=== PATIENT | female | born 1980 | race Caucasian/White ===

== ENCOUNTER 2016-10-08 16:22 | Emergency (ER) | payer BC ==
[~2016-10-08] VITALS: Ht 157.5 cm; Wt 61.5 kg
[2016-10-08 16:25] VITALS: TEMP 36.7; Ht 157.5 cm; Wt 61.5 kg
[2016-10-08] MEDS ORDERED: IBUPROFEN 600 MG TAB PO STA (16:45)
--- NOTE | 2016-10-08 16:55 | EMERGENCY ROOM VISIT NOTE ---
ED Visit Note First contact with patient: 16:39 CHIEF COMPLAINT: Leg pain HISTORY OF PRESENT ILLNESS: This 36-year-old female patient presents to the emergency department after she developed gradual onset of swelling and a steady pain in the left calf 2 days ago. There has been no injury to the leg, no fever , and no unusual activity which may have strained a muscle recently. Patient states she recently returned from [place] and had a long plane ride home. During the plane ride she began to feel a cramping pain in the back of her left calf. This pain has gotten progressively worse and has not improved with ice or heat. She has not taken any medications for the pain. She does take oral contraceptives. There is no history of blood clots in the veins of the legs. REVIEW OF SYSTEMS: Head: No headache, injury or neck pain. Neurological: No headache, new changes in mental status, vertigo, focal weakness, numbness. Cardiac: No chest pain, diaphoresis, dyspnea on exertion, orthopnea, pedal edema, or palpitations. Respiratory: No cough, change in sputum, wheezes, hemoptysis, shortness of breath, or stridor. Gastrointestinal: No abdominal pain, blood in stools, diarrhea, loss of appetite, nausea, or vomiting. General : No fever or chills, fatigue, loss of appetite, or significant recent weight gain or loss. PMH: The patient is healthy; there is no significant medical or surgical history. She is on oral contraceptives. SOCIAL HISTORY: Patient lives at home. PHYSICAL EXAM: Vital Signs: Reviewed Nurse's notes. HEART: Regular rate and rhythm without murmurs, ectopy, gallops, or rubs. LUNGS: Clear to auscultation and breath sounds equal, no wheezes, rales, or rhonchi. ABDOMEN: Soft, non- tender, no hepatosplenomegaly, or masses. NEUROLOGICAL: Alert oriented, coherent. PERRL, EOMI, gait normal. EXTREMITIES: No cyanosis, edema, joint tenderness or effusion. Pulses equal bilaterally. Normal sensation. There is tenderness to palpation of the posterior and medial calf muscle from the knee to the mid calf. There is no redness or notable swelling. Summer's sign is positive. The skin of the affected area is not warmer than the other leg. There is no lymphangitic streaking. IMAGING: ULTRASOUND LEFT LOWER EXTREMITY VENOUS CLINICAL HISTORY: Left leg pain following a transAtlantic flight. COMPARISON STUDY: No priors. TECHNIQUE: Real-time, grayscale, and color Doppler sonography of the deep veins of the left lower extremity was performed from the inguinal crease to the calf. Compression and augmentation were utilized. FINDINGS: There is no sonographic evidence of deep venous thrombosis identified in the left lower extremity. The common femoral, superficial femoral, and popliteal veins are patent and normally compressible. The greater saphenous vein and the profunda femoris vein at the junction with the common femoral vein are clear. The visualized calf veins are patent. A thrombosed superficial vein is noted in the posterior calf at the site of interest. IMPRESSION: 1. There is no sonographic evidence of deep venous thrombosis identified in the left lower extremity. 2. A thrombosed superficial vein is seen in the left posterior calf at the site of interest. EMERGENCY DEPARTMENT COURSE: I examined the patient. Differential diagnosis includes DVT, muscle strain, muscle cramp, among others. Doubt cellulitis or other infectious process. Ultrasound exam of the leg does not show any evidence of deep venous thrombosis, but does note a small superficial thrombosed vein that correlates with patient's pain. The patient was given ibuprofen for the pain, with reported good improvement. I did discuss the patient with Dr. Murphy, who agrees with my assessment and plan. Patient instructed on management and follow-up with her PCP, she verbalized understanding. Patient updated on all results and plan for discharge. Current/Historical Medications Scheduled Control Pills ( Control Pills), 1 TAB PO DAILY Allergies Coded Allergies: Latex1 -Allergic Contact Dermititis (Unverified Allergy, Mild, SENSITIVITY , 10/08/16) Vital Signs Date Time Temp Pulse Resp B/P (MAP) Pulse Ox O2 Delivery O2 Flow Rate FiO2 10/08/16 19:00 66 18 123/90 98 Room Air 10/08/16 16:25 36.7 99 18 164/91 100 Room Air Medications Administered Medications (Trade) Dose Ordered Sig/Ashlee Route Start Time Stop Time Status Last Admin Dose Admin Ibuprofen (Motrin Tab) 600 mg NOW STAT PO 10/08/16 16:45 10/08/16 16:47 DC 10/08/16 17:30 600 MG Departure Information Impression Primary Impression: Superficial thrombosis of left lower extremity Dispostion Home / Self-Care Condition GOOD Patient Instructions DVT Prevent, My [facility] Additional Instructions Stay off of the leg as much as possible and keep it elevated. Apply heat to the swollen/sore area frequently over the next few days. Ibuprofen 600 mg every 6-8 hours if needed for pain. Follow up with your PCP in the next few days for recheck. Please return to the emergency department for severe worsening pain, if the leg becomes swollen, red, or hot to the touch, if you develop chest pain, shortness of breath, dizziness or passing out, fevers/chills, or any other worsening symptoms/concerns.
[2016-10-08] MEDS ORDERED: BCPILLS PO (17:31)
--- NOTE | 2016-10-08 18:19 | DIAGNOSTIC IMAGING REPORT ---
ULTRASOUND LEFT LOWER EXTREMITY VENOUS CLINICAL HISTORY: Left leg pain following a transAtlantic flight. COMPARISON STUDY: No priors. TECHNIQUE: Real-time, grayscale, and color Doppler sonography of the deep veins of the left lower extremity was performed from the inguinal crease to the calf. Compression and augmentation were utilized. FINDINGS: There is no sonographic evidence of deep venous thrombosis identified in the left lower extremity. The common femoral, superficial femoral, and popliteal veins are patent and normally compressible. The greater saphenous vein and the profunda femoris vein at the junction with the common femoral vein are clear. The visualized calf veins are patent. A thrombosed superficial vein is noted in the posterior calf at the site of interest. IMPRESSION: 1. There is no sonographic evidence of deep venous thrombosis identified in the left lower extremity. 2. A thrombosed superficial vein is seen in the left posterior calf at the site of interest. Electronically signed by: Lonnie Lopez M.D. 10/08/2016 6:18 PM Dictated Date/Time: 10/08/2016 6:17 PM
[2016-10-08 19:00] VITALS: BP 123/90; PULSE 66; O2SAT 98
== END 2016-10-08 19:33 | disposition home or self-care (01) ==
LOC: C.EDB 16:22 → C.EDA 19:33
DX: I82.812 Embolism and thrombosis of superficial veins of left lower extremity (principal); Z79.3 Long term (current) use of hormonal contraceptives